=== PATIENT | female | born 1990 | race Hispanic/Latino ===

== ENCOUNTER → 2020-07-19 11:32 | Outpatient (CLI) | payer OTHER, SELFPAY ==
--- NOTE | 2020-07-19 11:35 | DI.US.S_ITS ---
PROCEDURE: US PERIPH VENOUS LOW EXTREM LT INDICATIONS: POST COVID VACCINE CALF PAIN AND SWELLING TECHNIQUE: Real-time imaging, as well as color and pulse Doppler interrogation, were performed of the lower extremity deep veins from the inguinal ligament to the popliteal fossa. COMPARISON: None. FINDINGS: Partially occlusive thrombus present within the proximal popliteal vein. The remaining greater saphenous, common femoral, deep femoral and femoral veins appear grossly patent. IMPRESSION: Left lower extremity deep venous thrombosis involving the proximal popliteal vein. Unsuccessful attempts to contact the referring clinician were made at the time of the study. The patient was subsequently transferred to the emergency department for further workup and treatment. Dictated by: Quinton Rodriguez M.D. on 07/19/2020 at 14:33 Approved by: Quinton Rodriguez M.D. on 07/19/2020 at 14:34
== END ==
PROVIDERS: PCP Physician Assistant Medical; Referring Provider Physician Assistant Medical; Visit Provider Physician Assistant Medical
DX: I82.432 Acute embolism and thrombosis of left popliteal vein (principal); T50.B95A Adverse effect of other viral vaccines, initial encounter; M79.89 Other specified soft tissue disorders
CPT/HCPCS: 93971

== ENCOUNTER 2020-07-19 13:47 | Emergency (ER) | payer OTHER, SELFPAY ==
[2020-07-19 14:04] VITALS: BP 131/88; PULSE 61; RESP 22; TEMP 36.4; O2SAT 97
--- NOTE | 2020-07-19 19:10 | ED_ITS ---
HPI - Extremity Injury (Lower) General Chief Complaint: Extremity Injury, Lower Stated Complaint: blood clot in left leg sent from DI Time Seen by Provider: 07/19/20 18:16 Source: patient Mode of arrival: Ambulatory Limitations: no limitations History of Present Illness HPI Narrative: Patient is a 30-year-old otherwise healthy female who was sent over today for an outpatient ultrasound of her left lower extremity secondary to discomfort in her left calf and behind her left knee. 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 She has had multiple plane rides recently. She has never had a blood clot in the past. A couple days ago started having pain behind the left knee. No chest pain. No shortness of breath. Not on control. Does not smoke. No specific trauma. Related Data Previous Rx's Medication Instructions Recorded apixaban [Eliquis] 5 mg PO BID #60 tab 07/19/20 Allergies Allergy/AdvReac Type Severity Reaction Status Date / Time No Known Drug Allergies Allergy Verified 07/19/20 20:29 Review of Systems Constitutional Constitutional: Reports system reviewed and no additional complaints, except as documented Cardiovascular Cardiovascular: Denies chest pain and Denies dyspnea Respiratory Respiratory: Denies dyspnea Musculoskeletal Comments: Left leg/calf pain Integumentary/Breasts Skin/Breast: Reports system reviewed and no additional complaints, except as documented Hematologic/Lymphatic On Anticoagulants: No Patient History Medical History Healthy adult Social History lives independently: Yes Exam Initial Vital Signs Initial Vital Signs: Vital Signs Temperature 97.5 F L 07/19/20 14:04 Pulse Rate 61 07/19/20 14:04 Respiratory Rate 22 07/19/20 14:04 Blood Pressure 131/88 07/19/20 14:04 Pulse Oximetry 97 07/19/20 14:04 Const General: cooperative and comfortable Limitations: mental status not altered HENMT Head: normal to inspection and normocephalic Resp Effort & Inspection: normal respiratory effort Cardio Rate: regular rate Skin Lesions: no lesions Rashes: no rashes Extrem Other: Slight tenderness to palpation posterior aspect of left knee and also along left calf. Psych Appearance: grossly normal and well kempt Course Orders Ordered: ED Orders 07/19/20 19:09 Basic Metabolic Panel Stat Complete Blood Count AUTO DIFF Stat Partial Thromboplastin Time Stat Test Serum,Qual Stat Prothrombin Time INR Stat Discontinued Medications Apixaban (Apixaban 5 Mg Tablet) 10 mg PO NOW ONE Stop: 07/19/20 19:59 Last Admin: 07/19/20 20:28 Dose: 10 mg Documented by: AKIKO Vital Signs Vital signs: Vital Signs - 8 hr 07/19/20 20:36 Pulse Rate 61 Respiratory Rate 16 Blood Pressure 115/60 Pulse Oximetry 100 MDM - Extremity Injury (Lower) Lab Data Attestation: I reviewed the patient's lab results. Result diagrams: 07/19/20 19:09 07/19/20 19:09 Labs: Lab Results 07/19/20 07/19/20 07/19/20 Range/Units 19:09 19:09 19:09 WBC 10.8 (4.5-11.0) X10^3/uL RBC 4.52 (4.0-5.2) X10^6/uL Hgb 13.0 (12.0-16.0) g/dL Hct 38.5 (36-46) % MCV 85.1 (80-100) fL MCH 28.8 (26-34) PG MCHC 33.8 (30-36) % RDW 13.9 (11.6-14.8) % Plt Count 297 (150-400) X10^3/uL Neut % (Auto) 67.6 (50-75) % Lymph % (Auto) 24.8 L (25-40) % [place] % (Auto) 5.6 (3-14) % Eos % (Auto) 1.1 L (2-4) % Baso % (Auto) 0.9 (0-2) % Neut # (Auto) 7300 H (9493-9048) /uL Lymph # (Auto) 2700 (5072-5041) /uL [place] # (Auto) 600 (0-900) /uL Eos # (Auto) 100 (0-450) /uL Baso # (Auto) 100 (0-100) /uL PT 12.2 (10.1-12.7) SECONDS INR 1.1 (0.9-1.3) APTT 36 (26.4-36.2) SECONDS Sodium 138 (137-145) mmol/L Potassium 3.8 (3.4-5.1) mmol/L Chloride 102 (98-107) mmol/L Carbon Dioxide 26 (22-32) mmol/L BUN 15 (7-17) mg/dL Creatinine 0.63 (0.52-1.04) mg/dL Estimated GFR > 60.0 (>60) mL/min BUN/Creatinine Ratio 23.8 H (6-22) Glucose 110 H (70-100) mg/dL Calcium 9.1 (8.4-10.2) mg/dL Serum , Qual (Negative) 07/19/20 Range/Units 19:09 WBC (4.5-11.0) X10^3/uL RBC (4.0-5.2) X10^6/uL Hgb (12.0-16.0) g/dL Hct (36-46) % MCV (80-100) fL MCH (26-34) PG MCHC (30-36) % RDW (11.6-14.8) % Plt Count (150-400) X10^3/uL Neut % (Auto) (50-75) % Lymph % (Auto) (25-40) % [place] % (Auto) (3-14) % Eos % (Auto) (2-4) % Baso % (Auto) (0-2) % Neut # (Auto) (1510-9783) /uL Lymph # (Auto) (2895-9395) /uL [place] # (Auto) (0-900) /uL Eos # (Auto) (0-450) /uL Baso # (Auto) (0-100) /uL PT (10.1-12.7) SECONDS INR (0.9-1.3) APTT (26.4-36.2) SECONDS Sodium (137-145) mmol/L Potassium (3.4-5.1) mmol/L Chloride (98-107) mmol/L Carbon Dioxide (22-32) mmol/L BUN (7-17) mg/dL Creatinine (0.52-1.04) mg/dL Estimated GFR (>60) mL/min BUN/Creatinine Ratio (6-22) Glucose (70-100) mg/dL Calcium (8.4-10.2) mg/dL Serum , Qual Negative (Negative) Imaging Data US - DVT: Radiologist's Impression: [address] [id number] ReportSigned Patient: Darcy Jane#: [id number]: 1990Acct:[id number]/Sex: 30 / FDate of Service: 07/19/20Loc: USAccession Number: [id number] Procedure: US periph venous low extrem lt Ordering Provider: Kimberly Acuña P.A-C PROCEDURE: US PERIPH VENOUS LOW EXTREM LT INDICATIONS: POST COVID VACCINE CALF PAIN AND SWELLING TECHNIQUE: Real-time imaging, as well as color and pulse Doppler interrogation, were performed of the lower extremity deep veins from the inguinal ligament to the popliteal fossa. COMPARISON: None. FINDINGS: Partially occlusive thrombus present within the proximal popliteal vein. The remaining greater saphenous, common femoral, deep femoral and femoral veins appear grossly patent. IMPRESSION: Left lower extremity deep venous thrombosis involving the proximal popliteal vein. Unsuccessful attempts to contact the referring clinician were made at the time of the study. The patient was subsequently transferred to the emergency department for further workup and treatment. Dictated by: Quinton Rodriguez M.D. on 07/19/2020 at 14:33 Approved by: Quinton Rodriguez M.D. on 07/19/2020 at 14:34 [facility] Narrative Medical decision making narrative: The ultrasound included in this note is for reference purposes only. It was ordered by the patient's primary provider and executed prior to her arrival here to the emergency department. She does have a positive DVT. She has no chest pain. No shortness of breath. Low suspicion for pulmonary embolism. Labs unremarkable. test negative. Will start on Eliquis. She was given return precautions. She was instructed to contact her primary doctor for follow-up. She expressed understanding and agreement. Discharge Plan Departure Patient Disposition: Home Clinical Impression: DVT (deep venous thrombosis) Instructions: Deep Vein Thrombosis Activity Restrictions/Additional Instructions: The ultrasound that you had performed as an outpatient today does show a left leg deep venous thrombosis (DVT). This is most likely caused by the airplane rides that you had recently. We do need to start you on anticoagulation. You were given your 1st dose here in the emergency department and then a prescription that she will start tomorrow for they remainder of the treatment. I recommend that you contact your primary doctor for follow-up. Return to the emergency department for any new or worsening symptoms Prescriptions: New Eliquis 5 mg tablet 5 mg PO BID Qty: 60 RF: 3 Referrals: Kimberly Acuña PA-C [Primary Care Provider] -
[2020-07-19 19:17] LABS: Add Manual Diff / Slide Review NO; Basophils Absolute Auto 100 /uL (0-100); Basophils Percent Auto 0.9 % (0-2); Eosinophils Absolute Auto 100 /uL (0-450); Eosinophils Percent Auto 1.1 % (2-4); Hematocrit 38.5 % (36-46); Lymphocytes Absolute Auto 2700 /uL (1100-4500); Lymphocytes Percent Auto 24.8 % (25-40); Mean Corpuscular HGB Conc 33.8 % (30-36); Mean Corpuscular Hemoglobin 28.8 PG (26-34); Mean Corpuscular Volume 85.1 fL (80-100); Monocytes Absolute Auto 600 /uL (0-900); Monocytes Percent Auto 5.6 % (3-14); Neutrophils Absolute Auto 7300 /uL (1500-7000); Neutrophils Percent Auto 67.6 % (50-75); Platelet Count 297 X10^3/uL (150-400); Red Blood Cell Count 4.52 X10^6/uL (4.0-5.2); Red Cell Distribution Width 13.9 % (11.6-14.8); White Blood Cell Count 10.8 X10^3/uL (4.5-11.0)
[2020-07-19 19:33] LABS: INR 1.1 (0.9-1.3); Prothrombin Time 12.2 SECONDS (10.1-12.7)
[2020-07-19 19:35] LABS: PTT Partial Thromboplastin Tim 36 SECONDS (26.4-36.2)
[2020-07-19 19:38] LABS: BUN Creatinine Ratio 23.8 (6-22); Blood Urea Nitrogen 15 mg/dL (7-17); Calcium 9.1 mg/dL (8.4-10.2); Carbon Dioxide 26 mmol/L (22-32); Chloride 102 mmol/L (98-107); Estimated Glomerular Filt Rate > 60.0 mL/min (>60); Glucose 110 mg/dL (70-100); HEMOLYSIS < 15 (0-50); Potassium 3.8 mmol/L (3.4-5.1); Sodium 138 mmol/L (137-145)
[2020-07-19 19:42] LABS: Pregnancy Test Serum,Qual Negative (Negative)
[2020-07-19] MEDS: APIXABAN 5 MG TABLET 10 MG PO (20:28)
[2020-07-19 20:36] VITALS: BP 115/60; PULSE 61; RESP 16; O2SAT 100
== END 2020-07-19 20:36 | disposition home or self-care (01) ==
PROVIDERS: Emergency Provider Emergency Medicine; PCP Physician Assistant Medical
DX: I82.432 Acute embolism and thrombosis of left popliteal vein (principal); T50.B95A Adverse effect of other viral vaccines, initial encounter; M79.89 Other specified soft tissue disorders
CPT/HCPCS: 36415; 80048; 84703; 85025; 85610; 85730; 93971; 99283